=== PATIENT | female | born 1950 | race Caucasian/White ===

== ENCOUNTER 2018-04-13 20:33 | Emergency (ER) | payer MEDICARE, OTHER ==
[~2018-04-13] VITALS: Ht 165.1 cm; Wt 79.5 kg
[2018-04-13 20:36] VITALS: BP 171/86; Ht 165.1 cm; Wt 79.5 kg
[2018-04-13] MEDS ORDERED: KENALOG 0.1% OI80 GM TOPICAL (21:07)
[2018-04-13] MEDS ORDERED: MEDROL DOSE PACK4 MG PO (21:07)
[2018-04-13] MEDS ORDERED: VISTARIL25 MG PO (21:07)
== END 2018-04-13 21:51 | disposition home or self-care (01) ==
LOC: D.ER 20:33
DX: T78.40XA Allergy, unspecified, initial encounter (principal); R21 Rash and other nonspecific skin eruption